=== PATIENT | female | born 1970 | race Two or more races ===

== ENCOUNTER 2021-04-30 15:23 | Emergency (ER) | payer OTHER ==
[~2021-04-30] VITALS: Ht 157.5 cm; Wt 99.8 kg
--- NOTE | 2021-04-30 15:45 | NUR ---
Pt came to ER c/o headache and R hand lac s/p slipped and fall, bumped her head on the wall ,and hit her hand to shattered glass. Denies loss of consciousness. Aaox4, breathing even and unlabored. Pt sitting in bed. Small bump to back of head, no bleeding. Several lacerations on R hand, mild bleeding. Will continue to monitor.
[2021-04-30] MEDS ORDERED: TDAP [DIPH/PERTUSSIS/TET] 0.5 ML VIAL IM ONE ×2 (16:00→16:17)
[2021-04-30] MEDS ORDERED: DOCU-141 PO (16:17)
[2021-04-30] MEDS ORDERED: HYDR30CR79 TP (16:17)
--- NOTE | 2021-04-30 17:00 | NUR ---
WOUNG BEING IRRIGATED
--- NOTE | 2021-04-30 17:55 | NUR ---
Patient discharged to home in stable condition. Written and verbal after care instructions given. Patient verbalizes understanding of instruction.
[2021-04-30 18:11] VITALS: BP 133/81
== END 2021-04-30 17:55 | disposition home or self-care (01) ==
LOC: ER 15:29
DX: S00.03XA Contusion of scalp, initial encounter (principal); S60.221A Contusion of right hand, initial encounter; W01.0XXA Fall on same level from slipping, tripping and stumbling without subsequent striking against object, initial encounter; Y93.89 Activity, other specified; Y92.89 Other specified places as the place of occurrence of the external cause; Y99.8 Other external cause status
CPT/HCPCS: 70450; 72125; 73130; 90471; 90715; 99284; A6403